=== PATIENT | male | born 1975 | race Caucasian/White ===

== ENCOUNTER 2018-01-14 19:07 | Emergency (ER) | payer MEDICAID ==
[~2018-01-14] VITALS: Ht 175.3 cm; Wt 77.1 kg
[2018-01-14 19:21] VITALS: Ht 175.3 cm; Wt 77.1 kg
[2018-01-14 21:02] VITALS: BP 130/80
== END 2018-01-14 21:02 | disposition home or self-care (01) ==
LOC: ED 19:07
DX: L03.114 Cellulitis of left upper limb (principal); B35.4 Tinea corporis; L30.9 Dermatitis, unspecified; F12.10 Cannabis abuse, uncomplicated
CPT/HCPCS: J7512; Q0163

== ENCOUNTER 2018-09-15 17:34 | Emergency (ER) | payer OTHER | END 2018-09-15 18:14 | disposition other institution (70) | LOC: ED 17:34 | DX: Z02.89 Encounter for other administrative examinations (principal) ==

== ENCOUNTER 2018-09-15 17:34 | Emergency (ER) | payer MEDICAID ==
[~2018-09-15] VITALS: Ht 175.3 cm; Wt 84.8 kg
[2018-09-15 17:40] VITALS: Ht 175.3 cm; Wt 84.8 kg
[2018-09-15 18:14] VITALS: BP 146/98
== END 2018-09-15 18:14 | disposition other institution (70) ==
LOC: ED 17:34
DX: M25.512 Pain in left shoulder (principal); M25.571 Pain in right ankle and joints of right foot; G89.29 Other chronic pain; M54.9 Dorsalgia, unspecified